=== PATIENT | female | born 1960 | race Caucasian/White ===

== ENCOUNTER 2018-01-07 10:22 | Day surgery (SDC) | payer MEDICARE ==
[~2018-01-07] VITALS: Ht 175.3 cm; Wt 97.7 kg
[~2018-01-07 10:22] MED LIST: ACET500; ALBU90OI61 INH; ATEN25 PO; CETI5 PO; CLOB.05TC TOP; CLOT10 SS; CYCL10 PO; FISH1000 PO; FLUT110OIA INH; HYDSUL200 PO; IBUP400 PO; LANS30EC PO; OXYC5
== END 2018-01-07 11:55 | disposition home or self-care (01) ==
LOC: ORSCSDS 10:22
PROVIDERS: Internal Medicine Gastroenterology
PROC: 0DB58ZX Excision of Esophagus, Via Natural or Artificial Opening Endoscopic, Diagnostic (ICD-10-PCS; principal; 2018-01-07 11:30)
PROC: 0DB68ZX Excision of Stomach, Via Natural or Artificial Opening Endoscopic, Diagnostic (ICD-10-PCS; principal; 2018-01-07 11:30)
DX: K22.70 Barrett's esophagus without dysplasia (principal); K44.9 Diaphragmatic hernia without obstruction or gangrene; R14.0 Abdominal distension (gaseous); I10 Essential (primary) hypertension; K21.9 Gastro-esophageal reflux disease without esophagitis; E78.5 Hyperlipidemia, unspecified; M79.7 Fibromyalgia; F17.210 Nicotine dependence, cigarettes, uncomplicated; Z79.899 Other long term (current) drug therapy
CPT/HCPCS: 88305; 88342; J7120

== ENCOUNTER → 2021-10-31 | Outpatient (CLI) | payer MEDICARE | END | disposition home or self-care (01) | LOC: LAB SHORT 11:28 | DX: R60.0 Localized edema (principal) | CPT/HCPCS: 81050 ==

== ENCOUNTER 2022-02-21 07:04 | Day surgery (SDC) | payer MEDICARE ==
[~2022-02-21] VITALS: Ht 175.3 cm; Wt 116.4 kg
[~2022-02-21 07:04] MED LIST changes: +FURO20; +MONT10T PO; +MORP15ER PO; +OMEP20ER PO; +RABE20 PO
--- NOTE | 2022-02-21 07:59 | NUR ---
02/21/22 0759 [address] History, Chart, Medications and Allergies reviewed before start of procedure. Patient confirms NPO status and agrees with scheduled surgery. 3-LEAD EKG REVIEWED WITH PHYSICIAN PRIOR TO START OF PROCEDURE. MONITOR INTACT WITH CONTINUOUS PULSE OXIMETRY AND INTERMITTENT BP. PATIENT DETERMINED TO BE ASA APPROPRIATE FOR PROPOFOL SEDATION PRIOR TO START OF PROCEDURE BY
--- NOTE | 2022-02-21 08:53 | NUR ---
Patient up to Ambulate independently. Gait steady. Discharge instructions reviewed with patient. Patient verbalizes understanding. Copy given to patient to take home. History, Chart, Medications and Allergies reviewed before start of procedure.Discharged via wheelchair to private car for ride home.
== END 2022-02-21 08:54 | disposition home or self-care (01) ==
LOC: ORSCMMR 07:04 → ORD 08:00 → ORSCMMR 08:54
PROVIDERS: Internal Medicine Gastroenterology
PROC: 0DB58ZX Excision of Esophagus, Via Natural or Artificial Opening Endoscopic, Diagnostic (ICD-10-PCS; principal; 2022-02-21 08:00)
PROC: 0DB48ZX Excision of Esophagogastric Junction, Via Natural or Artificial Opening Endoscopic, Diagnostic (ICD-10-PCS; principal; 2022-02-21 08:00)
DX: K22.70 Barrett's esophagus without dysplasia (principal); K44.9 Diaphragmatic hernia without obstruction or gangrene; I10 Essential (primary) hypertension; J45.909 Unspecified asthma, uncomplicated; K21.9 Gastro-esophageal reflux disease without esophagitis; Z87.891 Personal history of nicotine dependence; E66.9 Obesity, unspecified; Z68.37 Body mass index [BMI] 37.0-37.9, adult; Z79.899 Other long term (current) drug therapy
CPT/HCPCS: 88305; A9270; J2704; J7120

== ENCOUNTER 2022-04-06 14:37 | Emergency (ER) | payer MEDICARE ==
[~2022-04-06] VITALS: Ht 175.3 cm; Wt 113.4 kg
[2022-04-06 16:31] LABS: BASOPHILS ABSOLUTE AUTO 0.05 K/mm3 (0.00-0.23); BASOPHILS PERCENT AUTO 0 % (0-2); EOSINOPHILS ABSOLUTE AUTO 0.05 K/mm3 (0.00-0.68); EOSINOPHILS PERCENT AUTO 0 % (0-6); Hemoglobin 14.4 g/dL (11.5-16.0); IMMATURE GRAN ABSOLUTE AUTO 0.09 K/mm3 (0.00-0.10); IMMATURE GRAN PERCENT AUTO 1 % (0-1); LYMPHOCYTES ABSOLUTE AUTO 2.38 K/mm3 (0.84-5.20); LYMPHOCYTES PERCENT AUTO 17 % (21-46); MONOCYTES ABSOLUTE AUTO 0.87 K/mm3 (0.16-1.47); MONOCYTES PERCENT AUTO 6 % (4-13); Mean Corpuscular HGB 28.7 pg (26.0-34.0); Mean Corpuscular HGB Conc 32.7 g/dL (31.5-36.5); Mean Corpuscular Volume 88 fL (80-100); Mean Platelet Volume 8.6 fL (9.1-12.4); NEUTROPHILS ABSOLUTE AUTO 10.82 K/mm3 (1.96-9.15); NEUTROPHILS PERCENT AUTO 76 % (41-73); Platelet Count 421 K/mm3 (150-400); RDW Coefficient Variation 12.4 % (11.7-14.2); RDW Standard Deviation 39.5 fL (35.1-46.3); Red Blood Cell Count 5.01 M/mm3 (3.80-5.20); White Blood Cell Count 14.26 K/mm3 (4.00-11.30)
[2022-04-06 16:55] LABS: Albumin, Blood 3.8 g/dL (3.4-5.0); Albumin/Globulin Ratio 0.8 (0.8-1.8); Bilirubin, Total 0.7 mg/dL (0.1-1.0); Bun/Creatinine Ratio 28.9 (12.0-20.0); Calcium, Blood 9.6 mg/dL (8.5-10.1); Creatinine, Blood 0.59 mg/dL (0.40-1.00); Globulin, Blood 4.8 g/dL (2.2-4.0); Potassium, Blood 3.5 mmol/L (3.5-5.5); Total Protein, Blood 8.6 g/dL (6.4-8.2)
== END 2022-04-06 19:43 | disposition left against medical advice (07) ==
LOC: ER 14:37
PROVIDERS: Physician Assistant
DX: R10.9 Unspecified abdominal pain (principal); Z53.21 Procedure and treatment not carried out due to patient leaving prior to being seen by health care provider
CPT/HCPCS: 80053; 83690; 84484; 85025; 93005; 93010

== ENCOUNTER → 2022-08-28 | Outpatient (CLI) | payer MEDICARE ==
[~2022-08-28] MED LIST changes: +ACETAMINOPHEN500 MG PO; -FURO20; +FURO20 PO
[2022-08-28 17:25] LABS: Creatinine Urine 69.4 mg/dL (27.00-270.00)
[2022-08-31 17:11] LABS: DOPAMINE, URINE 208 ug/L (Undefined)
[2022-08-31 22:06] LABS: METANEPHRINE, UR 62 ug/L (Undefined)
== END ==
LOC: LAB SHORT 13:10 → LAB 13:10
PROVIDERS: Internal Medicine Endocrinology, Diabetes & Metabolism
DX: D35.00 Benign neoplasm of unspecified adrenal gland (principal)
CPT/HCPCS: 81050; 82384; 82570

== ENCOUNTER 2023-02-16 12:07 | Emergency (ER) | payer MEDICARE ==
[~2023-02-16] VITALS: Ht 175.3 cm; Wt 107.0 kg
[2023-02-16 12:34] VITALS: BP 145/98
[2023-02-16 13:25] LABS: Source, Urine Voided
[2023-02-16 13:27] LABS: BASOPHILS ABSOLUTE AUTO 0.07 K/mm3 (0.00-0.23); BASOPHILS PERCENT AUTO 1 % (0-2); EOSINOPHILS ABSOLUTE AUTO 0.09 K/mm3 (0.00-0.68); EOSINOPHILS PERCENT AUTO 1 % (0-6); Hematocrit 40.7 % (33.0-51.0); Hemoglobin 13.3 g/dL (11.5-16.0); IMMATURE GRAN ABSOLUTE AUTO 0.05 K/mm3 (0.00-0.10); IMMATURE GRAN PERCENT AUTO 0 % (0-1); LYMPHOCYTES ABSOLUTE AUTO 2.58 K/mm3 (0.84-5.20); LYMPHOCYTES PERCENT AUTO 18 % (21-46); MONOCYTES ABSOLUTE AUTO 0.52 K/mm3 (0.16-1.47); MONOCYTES PERCENT AUTO 4 % (4-13); Mean Corpuscular HGB 28.8 pg (26.0-34.0); Mean Corpuscular HGB Conc 32.7 g/dL (31.5-36.5); Mean Corpuscular Volume 88 fL (80-100); Mean Platelet Volume 9.1 fL (9.1-12.4); NEUTROPHILS ABSOLUTE AUTO 10.95 K/mm3 (1.96-9.15); NEUTROPHILS PERCENT AUTO 77 % (41-73); Platelet Count 385 K/mm3 (150-400); RDW Coefficient Variation 13.6 % (11.7-14.2); RDW Standard Deviation 43.9 fL (35.1-46.3); Red Blood Cell Count 4.62 M/mm3 (3.80-5.20); White Blood Cell Count 14.26 K/mm3 (4.00-11.30)
[2023-02-16 13:43] LABS: Appearance, Urine Cloudy (Clear); Blood, Urine 5+ (Neg); Glucose Qualitative, Urine Neg (Neg); Ketones, Urine Neg (Neg); Leukocyte Esterase, Urine 3+ (Neg); Nitrite, Urine Pos (Neg); Protein, Urine 2+ (Neg); Specific Gravity, Urine 1.015 (1.003-1.022); Urobilinogen, Urine 2+ (Normal)
[2023-02-16 13:59] LABS: Albumin, Blood 3.4 g/dL (3.4-5.0); Albumin/Globulin Ratio 0.8 (0.8-1.8); Bilirubin, Total 0.2 mg/dL (0.1-1.0); Bun/Creatinine Ratio 25.3 (12.0-20.0); Calcium, Blood 9.3 mg/dL (8.5-10.1); Creatinine, Blood 0.63 mg/dL (0.40-1.00); Total Protein, Blood 7.4 g/dL (6.4-8.2)
[2023-02-16 15:26] LABS: Bilirubin, Urine 2+ (Neg); Color, Urine Orange (P-Yellow)
[2023-02-16 15:29] LABS: Red Blood Cells, Urine TNTC /hpf (0-2); White Blood Cells, Urine 50-100 /hpf (0-5)
[2023-02-16 15:30] LABS: Bacteria Many /hpf; Squamous Epithelial Cells Mod /hpf (Few)
[2023-02-16] MEDS ORDERED: SULTRIDS PO (15:45)
== END 2023-02-16 16:24 | disposition home or self-care (01) ==
LOC: ER 12:07
PROVIDERS: Student in an Organized Health Care Education/Training Program
DX: N12 Tubulo-interstitial nephritis, not specified as acute or chronic (principal); I10 Essential (primary) hypertension; M79.7 Fibromyalgia; Z88.8 Allergy status to other drugs, medicaments and biological substances; Z79.899 Other long term (current) drug therapy; Z87.891 Personal history of nicotine dependence
CPT/HCPCS: 80053; 81001; 83690; 85025; 87077; 87086; 87186; 96365; 99283-25; J0696

== ENCOUNTER → 2023-06-27 | Outpatient (CLI) | payer MEDICARE ==
[~2023-06-27] MED LIST changes: +SULTRIDS PO
== END ==
LOC: LAB SHORT 08:20 → LAB 08:20
PROVIDERS: Internal Medicine Endocrinology, Diabetes & Metabolism
DX: D49.7 Neoplasm of unspecified behavior of endocrine glands and other parts of nervous system (principal)
CPT/HCPCS: 81050; 82530

== ENCOUNTER → 2023-10-06 | Outpatient (CLI) | payer MEDICARE | END | disposition home or self-care (01) | LOC: LAB SHORT 11:09 → LAB 11:09 | DX: R35.0 Frequency of micturition (principal); R30.0 Dysuria; R31.9 Hematuria, unspecified | CPT/HCPCS: 87077; 87086; 87186 ==

== ENCOUNTER 2023-10-20 20:02 | Observation (INO) | payer MEDICARE ==
[~2023-10-20] VITALS: Ht 175.3 cm; Wt 101.6 kg
[2023-10-20 20:42] LABS: BASOPHILS ABSOLUTE AUTO 0.06 K/mm3 (0.00-0.23); BASOPHILS PERCENT AUTO 0 % (0-2); EOSINOPHILS ABSOLUTE AUTO 0.03 K/mm3 (0.00-0.68); EOSINOPHILS PERCENT AUTO 0 % (0-6); Hematocrit 38.4 % (33.0-51.0); Hemoglobin 12.8 g/dL (11.5-16.0); IMMATURE GRAN ABSOLUTE AUTO 0.06 K/mm3 (0.00-0.10); IMMATURE GRAN PERCENT AUTO 0 % (0-1); LYMPHOCYTES ABSOLUTE AUTO 1.42 K/mm3 (0.84-5.20); LYMPHOCYTES PERCENT AUTO 9 % (21-46); MONOCYTES ABSOLUTE AUTO 0.38 K/mm3 (0.16-1.47); MONOCYTES PERCENT AUTO 2 % (4-13); Mean Corpuscular HGB 29.3 pg (26.0-34.0); Mean Corpuscular HGB Conc 33.3 g/dL (31.5-36.5); Mean Corpuscular Volume 88 fL (80-100); Mean Platelet Volume 9.2 fL (9.1-12.4); NEUTROPHILS ABSOLUTE AUTO 14.06 K/mm3 (1.96-9.15); NEUTROPHILS PERCENT AUTO 88 % (41-73); Platelet Count 370 K/mm3 (150-400); RDW Coefficient Variation 13.2 % (11.7-14.2); RDW Standard Deviation 42.3 fL (35.1-46.3); Red Blood Cell Count 4.37 M/mm3 (3.80-5.20); White Blood Cell Count 16.01 K/mm3 (4.00-11.30)
[2023-10-20 20:54] LABS: Albumin, Blood 3.3 g/dL (3.4-5.0); Albumin/Globulin Ratio 0.8 (0.8-1.8); Bilirubin, Total 0.4 mg/dL (0.1-1.0); Calcium, Blood 9.2 mg/dL (8.5-10.1); Creatinine, Blood 0.58 mg/dL (0.40-1.00); Globulin, Blood 4.3 g/dL (2.2-4.0); Potassium, Blood 3.7 mmol/L (3.5-5.5); Total Protein, Blood 7.6 g/dL (6.4-8.2)
[2023-10-20 23:53] LABS: Source, Urine Voided
[2023-10-20 23:57] LABS: Bilirubin, Urine Neg (Neg); Blood, Urine 2+ (Neg); Glucose Qualitative, Urine 2+ (Neg); Ketones, Urine 1+ (Neg); Leukocyte Esterase, Urine Neg (Neg); Nitrite, Urine Neg (Neg); Protein, Urine Neg (Neg); Urobilinogen, Urine NORM (Normal)
[2023-10-21 00:07] LABS: Appearance, Urine Clear (Clear); Color, Urine Pale Yellow (P-Yellow)
[2023-10-21 00:08] LABS: Bacteria Not Seen /hpf; Squamous Epithelial Cells Not Seen /hpf (Few); White Blood Cells, Urine 0-2 /hpf (0-5)
[2023-10-21] MEDS ORDERED: Robaxin750 MG PO (00:32)
[2023-10-21] MEDS ORDERED: IBUP600 PO (00:32)
[2023-10-21] MEDS ORDERED: PROM12.5S PR (00:33)
[2023-10-21 01:58] VITALS: BP 175/80
[2023-10-21] MEDS ORDERED: LOSA25 PO (02:01)
[2023-10-21] MEDS ORDERED: RABE20 PO (02:04)
--- NOTE | 2023-10-21 02:40 | NUR ---
MS SCHUMACHER WAS ADMITTED TO MEDICAL UNIT FROM ER AT 0135. SHE WAS ABLE TO STAND TO TRANSFERE INTO BED INDEPENDENTLY. SHE HAD 9/10 LEFT ABDOMINAL PAIN RADIATING THROUGH TO LEFT BACK ON ARRIVAL WITH NAUSEA. GIVEN 50MCG FENTANYL AND ZOFRAN SOON AFTER ARRIVAL. SHE SAID PAIN IS SLIGHTLY BETTER BUT SHE'S STILL FEELING VERY UNCOMFORTABLE. OFFERED TORADOL BUT SHE SAID IT DOESN'T WORK, JUST GIVES HER HEARTBURN. BLOOD PRESSURE 175/80 ON ARRIVAL - PT SAID THIS IS NORMAL FOR HER SHE DID NOT TAKE HER ORAL ANTIHYPERTENSIVE MEDS YESTERDAY. DR MONZON WAS CALLED AND NOTIFIED OF PT PAIN LEVEL AND BLOOD PRESSURE. TELEPHONE ORDER FOR MORPHINE 2-4MG IV Q6HRS PRN PAIN AND CONTINUE TO MONITOR BP.
[2023-10-21 03:04] VITALS: BP 175/80
[2023-10-21 04:41] LABS: BASOPHILS ABSOLUTE AUTO 0.03 K/mm3 (0.00-0.23); BASOPHILS PERCENT AUTO 0 % (0-2); EOSINOPHILS ABSOLUTE AUTO 0.01 K/mm3 (0.00-0.68); EOSINOPHILS PERCENT AUTO 0 % (0-6); Hemoglobin 12.8 g/dL (11.5-16.0); IMMATURE GRAN ABSOLUTE AUTO 0.18 K/mm3 (0.00-0.10); IMMATURE GRAN PERCENT AUTO 1 % (0-1); LYMPHOCYTES ABSOLUTE AUTO 0.92 K/mm3 (0.84-5.20); LYMPHOCYTES PERCENT AUTO 6 % (21-46); MONOCYTES ABSOLUTE AUTO 0.26 K/mm3 (0.16-1.47); MONOCYTES PERCENT AUTO 2 % (4-13); Mean Corpuscular HGB 28.6 pg (26.0-34.0); Mean Corpuscular HGB Conc 32.8 g/dL (31.5-36.5); Mean Corpuscular Volume 87 fL (80-100); Mean Platelet Volume 9.1 fL (9.1-12.4); NEUTROPHILS ABSOLUTE AUTO 15.14 K/mm3 (1.96-9.15); NEUTROPHILS PERCENT AUTO 91 % (41-73); Platelet Count 361 K/mm3 (150-400); RDW Coefficient Variation 13.2 % (11.7-14.2); RDW Standard Deviation 42.2 fL (35.1-46.3); Red Blood Cell Count 4.47 M/mm3 (3.80-5.20); White Blood Cell Count 16.54 K/mm3 (4.00-11.30)
[2023-10-21 05:02] LABS: Albumin, Blood 3.4 g/dL (3.4-5.0); Albumin/Globulin Ratio 0.8 (0.8-1.8); Bilirubin, Total 0.5 mg/dL (0.1-1.0); Bun/Creatinine Ratio 18.5 (12.0-20.0); Calcium, Blood 8.9 mg/dL (8.5-10.1); Creatinine, Blood 0.59 mg/dL (0.40-1.00); Globulin, Blood 4.5 g/dL (2.2-4.0); Potassium, Blood 3.6 mmol/L (3.5-5.5); Total Protein, Blood 7.9 g/dL (6.4-8.2)
--- NOTE | 2023-10-21 05:44 | NUR ---
SHIFT SUMMARY/MD CALL MS WHITTINGTON CONTINUES TO C/O LEFT SIDED ABDOMINAL PAIN RADIATING THROUGH TO HER LEFT BACK. PAIN SEEMS TO BE SLIGHTLY BETTER CONTROLLED WITH MORPHINE IV. SHE LOOKS MORE SETTLED NOW. C/O NAUSEA WHICH ZOFRAN DIDN'T HELP VERY MUCH, DR MONZON INFORMED OF CONTINUED NAUSEA AND TELEPHONE ORDER TAKEN FOR REGLAN 10MG IV Q6HRS PRN. READ BACK DONE AND ORDER ENTERED INTO [employer]. ON TELEMETRY IN SR, NO CALLS FROM PERSONAL LINES APPRAISER. BED LOW, CALL LIGHT IN REACH. PT EDUCATED ON FALL PRECAUTIONS AND TO WAIT FOR ASSISTANCE BEFORE GETTING OOB D/T MEDICATIONS.
[2023-10-21 07:35] VITALS: BP 160/66
[2023-10-21] MEDS ORDERED: TAMS.4ER PO (13:13)
[2023-10-21] MEDS ORDERED: CEFU500T30 PO (13:14)
[2023-10-21] MEDS ORDERED: Norco 5-325 Ta1 EACH PO (13:15)
[2023-10-21] MEDS ORDERED: ONDA4ODT MM (13:22)
--- NOTE | 2023-10-21 13:53 | NUR ---
DISCHARGE NOTE PT DISCHARGED HOME AT APPROX 13:40. PT PROVIDED W/ VERBAL AND WRITTEN INSTRCUTIONS AND REPORTED UNDERSTANDING. PT A&OX4, VSS, AMB IND, TOLERATING PO, VOIDING, AND PAIN MANAGED PER EMAR. HARD SCRIPT PROVIDED TO PT AND PT BELONGINGS RETURNED. PT ESCOURTED OUT VIA W/C BY ARIANNA PATEL.
== END 2023-10-21 13:48 | disposition home or self-care (01) ==
LOC: ER 20:02 → MEDS 20:03 → ENPENDDIS 10-21 13:14 → MEDS 10-21 13:48
PROVIDERS: Emergency Medicine; ADMIT Internal Medicine
DX: N13.2 Hydronephrosis with renal and ureteral calculous obstruction (principal); K57.30 Diverticulosis of large intestine without perforation or abscess without bleeding; K76.0 Fatty (change of) liver, not elsewhere classified; N28.1 Cyst of kidney, acquired; M79.7 Fibromyalgia; K86.1 Other chronic pancreatitis; Z88.8 Allergy status to other drugs, medicaments and biological substances
CPT/HCPCS: 36415; 74177; 80053; 81001; 83690; 85025; 93005; 93010; 96361; 96365; 96372; 96374-59; 96375; 96376; 99285-25; A9270; G0378; J0696; J1650; J1790; J1885; J2270; J2405; J2765; J3010; J7030; J7120; Q9967

== ENCOUNTER 2024-05-19 13:56 | Emergency (ER) | payer MEDICARE ==
[~2024-05-19] VITALS: Ht 175.3 cm; Wt 99.8 kg
[~2024-05-19 13:56] MED LIST changes: +CEFU500T30 PO; +IBUP600 PO; +LOSA25 PO; +Norco 5-325 Ta1 EACH PO; +ONDA4ODT MM; +PROM12.5S PR; +Robaxin750 MG PO; +TAMS.4ER PO
[2024-05-19 14:39] LABS: BASOPHILS ABSOLUTE AUTO 0.09 K/mm3 (0.00-0.23); BASOPHILS PERCENT AUTO 1 % (0-2); EOSINOPHILS ABSOLUTE AUTO 0.27 K/mm3 (0.00-0.68); EOSINOPHILS PERCENT AUTO 2 % (0-6); Hematocrit 41.2 % (33.0-51.0); Hemoglobin 13.6 g/dL (11.5-16.0); IMMATURE GRAN ABSOLUTE AUTO 0.07 K/mm3 (0.00-0.10); IMMATURE GRAN PERCENT AUTO 1 % (0-1); LYMPHOCYTES PERCENT AUTO 23 % (21-46); MONOCYTES ABSOLUTE AUTO 0.67 K/mm3 (0.16-1.47); MONOCYTES PERCENT AUTO 5 % (4-13); Mean Corpuscular HGB 29.5 pg (26.0-34.0); Mean Corpuscular Volume 89 fL (80-100); NEUTROPHILS ABSOLUTE AUTO 8.59 K/mm3 (1.96-9.15); NEUTROPHILS PERCENT AUTO 68 % (41-73); Platelet Count 357 K/mm3 (150-400); RDW Coefficient Variation 13.2 % (11.7-14.2); RDW Standard Deviation 43.2 fL (35.1-46.3); Red Blood Cell Count 4.61 M/mm3 (3.80-5.20); White Blood Cell Count 12.59 K/mm3 (4.00-11.30)
[2024-05-19] MEDS ORDERED: Albuterol 2.5 MG/3 ML VIAL INH SCH (15:10)
[2024-05-19] MEDS ORDERED: MethylPREDNISolone Sod Succ 125 MG Vial IV ONE (15:10)
[2024-05-19 15:15] LABS: Albumin, Blood 3.4 g/dL (3.4-5.0); Albumin/Globulin Ratio 0.8 (0.8-1.8); Bilirubin, Total 0.3 mg/dL (0.1-1.0); Calcium, Blood 9.2 mg/dL (8.5-10.1); Creatinine, Blood 0.65 mg/dL (0.40-1.00); Globulin, Blood 4.3 g/dL (2.2-4.0); Potassium, Blood 4.2 mmol/L (3.5-5.5); Total Protein, Blood 7.7 g/dL (6.4-8.2)
[2024-05-19 16:15] VITALS: BP 165/71
[2024-05-19] MEDS ORDERED: BUDESONIDE-FO10.2 G2 INH (17:32)
[2024-05-19] MEDS ORDERED: AZIT250 PO (17:32)
[2024-05-19] MEDS ORDERED: Prednisone20 MG PO (17:32)
== END 2024-05-19 17:36 | disposition home or self-care (01) ==
LOC: ER 13:56
PROVIDERS: Physician Assistant
DX: J44.1 Chronic obstructive pulmonary disease with (acute) exacerbation (principal); I10 Essential (primary) hypertension; Z88.8 Allergy status to other drugs, medicaments and biological substances; Z79.899 Other long term (current) drug therapy
CPT/HCPCS: 71046; 80053; 83880; 84484; 85025; 93005; 93010; 94644; 94664; 96374; 99285-25; J2919